=== PATIENT | male | born 1975 ===

== ENCOUNTER 2023-10-11 11:11 | Outpatient (OUT) | payer OTHER, SELFPAY ==
--- NOTE | 2023-10-11 | XR_ITS ---
The [address] [address] Patient Name: ETHEL ATWOOD MRN: [id number] date: 1975 Sex: M Assigned Patient Location: Current Patient Location: Accession/Order Number: [id number] Exam Date: 10/11/2023 11:19 Report Date: 10/12/2023 13:35 At the request of: KELTON DEAL Procedure: XR ankle LT min 3V PROCEDURE: XR ankle LT min 3V HISTORY: LEFT ANKLE PAIN COMPARISON: None. FINDINGS: BONES:Small calcaneal plantar spur and small degenerative enthesophyte at the Achilles tendon insertion into the calcaneus. No fracture, dislocation, or bone lesion. SOFT TISSUES:No visible soft tissue swelling. EFFUSION:None visible. OTHER: Negative. XR/XR ankle LT min 3V IMPRESSION: 1. Mild degenerative enthesopathic spurring of the calcaneus of uncertain clinical significance. 2. No acute bone abnormality. Electronically authenticated by: ANGELA ROESN Date: 10/12/2023 13:35
== END 2023-10-11 11:12 | disposition home or self-care (01) ==
LOC: EC 11:11
PROVIDERS: PCP Podiatrist Foot & Ankle Surgery; Visit Provider Podiatrist Foot & Ankle Surgery
DX: M25.572 Pain in left ankle and joints of left foot (principal); M77.32 Calcaneal spur, left foot
CPT/HCPCS: 73610